=== PATIENT | male | born 1960 | race African-American/Black ===

== ENCOUNTER 2018-10-31 14:55 | Emergency (ER) | payer MEDICAID ==
[~2018-10-31] VITALS: Ht 175.3 cm; Wt 63.5 kg
[~2018-10-31 14:55] MED LIST: GLYB2.5T1 PO; INSU100S45 SUBQ; LEVO500T6 PO; METF850T PO; METR250T2 PO
[2018-10-31 15:05] VITALS: BP 88/42
--- NOTE | 2018-10-31 15:19 | NUR ---
PT TO BED 1
[2018-10-31] MEDS ORDERED: NACL 0.9% 2,000 ML IV ONE (15:30)
--- NOTE | 2018-10-31 16:30 | NUR ---
PT AGGRESSIVE VERBALLY WITH STAFF AND REQUESTING SANDWICH
--- NOTE | 2018-10-31 16:35 | NUR ---
DR AHN VERBAL OK TO GIVE PT A SANDWICH
[2018-10-31] MEDS ORDERED: KETOROLAC 15 MG/ML VIAL IVP ONE (16:40)
--- NOTE | 2018-10-31 16:44 | NUR ---
PICS COMPLETED AND DOCUMENTED
[2018-10-31 16:50] LABS: BASOPHILS # (AUTO) 0.1 K/uL (0.00-0.22); BASOPHILS % (AUTO) 0.7 % (0.0-2.0); EOSINOPHILS # (AUTO) 0.1 K/uL (0-0.4); EOSINOPHILS % (AUTO) 1.1 % (0.0-4.0); HEMATOCRIT 42.3 % (36-52); LYMPHOCYTES # (AUTO) 2.9 K/uL (2.0-11.5); LYMPHOCYTES % (AUTO) 25.9 % (20.5-51.1); MEAN CORPUSCULAR HEMOGLOBIN 28 pg (27-31); MEAN CORPUSCULAR HGB CONC 33 g/dL (33-37); MEAN CORPUSCULAR VOLUME 84.1 fL (80-94); MONOCYTES # (AUTO) 0.5 K/uL (0.8-1.0); MONOCYTES % (AUTO) 4.8 % (1.7-9.3); NEUTROPHILS # (AUTO) 7.4 K/uL (1.8-7.7); NEUTROPHILS % (AUTO) 67.5 % (42.2-75.2); PLATELET COUNT (AUTO) 347 K/uL (140-450); RED BLOOD CELL COUNT(AUTO) 5.03 MIL/uL (4.20-6.10)
[2018-10-31] MEDS ORDERED: KETOROLAC 15 MG/ML VIAL ONE (16:51)
[2018-10-31 17:11] LABS: ALBUMIN 3.4 g/dL (3.4-5.0); ANION GAP 18.9 (8-16); ASPARTATE AMINOTRANSFERASE 25 U/L (15-37); CARBON DIOXIDE 23.8 mmol/L (21-32); CHLORIDE 97 mmol/L (98-107); CREATININE 1.5 mg/dL (0.7-1.3); GFR ARICAN-AMERICAN 62 mL/min (>90); POTASSIUM 3.7 mmol/L (3.5-5.1); SODIUM SERUM 136 mmol/L (136-145); TOTAL BILIRUBIN 0.4 mg/dL (0.0-1.0); UREA NITROGEN, BLOOD 10 mg/dL (7-18)
[2018-10-31 17:13] LABS: GLUCOSE 474 mg/dL (74-106)
[2018-10-31 17:20] LABS: ACETONE, SERUM NEGATIVE (NEGATIVE)
[2018-10-31] MEDS ORDERED: INSULIN REGULAR, HUMAN 100 UNIT/ML VIAL SUBQ ONE (17:20)
[2018-10-31 17:58] LABS: APPEARANCE,URINE CLEAR (CLEAR); BILIRUBIN,URINE NEGATIVE (NEGATIVE); BLOOD, URINE NEGATIVE (NEGATIVE); COLOR,URINE YELLOW (YELLOW); LEUKOCYTE ESTERASE ,URINE NEGATIVE (NEGATIVE); NITRITE, URINE NEGATIVE (NEGATIVE); UGLUCOSE 3+ (NEGATIVE)
[2018-10-31 18:01] LABS: BARBITURATE, URINE NEG. ng/ml (NEG <=200); BENZODIAZEPINE, URINE NEG. ng/mL (NEG <=200); CANNABINOID, URINE POS. ng/mL (NEG <=50); COCAINE, URINE POS. ng/mL (NEG <=300); OPIATE, URINE NEG. ng/mL (NEG <=2000); PHENCYCLIDINE SCREEN,URINE NEG. ng/mL (NEG <=25)
--- NOTE | 2018-10-31 18:32 | NUR ---
PT DOES NOT RECALL MEDS
--- NOTE | 2018-10-31 19:13 | NUR ---
Pt report given to VELASQUEZ [place]. Transfer of care at this time.
--- NOTE | 2018-10-31 19:15 | NUR ---
BLOOD SUGAR 392
--- NOTE | 2018-10-31 19:20 | NUR ---
PT WANTS TO LEAVE AMANGELITO Avalos NOTIFIED.
--- NOTE | 2018-10-31 19:22 | NUR ---
PT AMBULATED TO BATHROOM
[2018-10-31 19:45] VITALS: BP 147/87
--- NOTE | 2018-10-31 20:38 | NUR ---
Patient discharged with v/s stable. HOMELESS PACKET AND RESOURCES WERE PROVIDED. Written and verbal after care instructions given and explained. Patient alert, oriented and verbalized understanding of instructions. Ambulatory with steady gait. All questions addressed prior to discharge. ID band removed. Patient advised to follow up with PMD. Rx of LANTUS WAS given. Patient educated on indication of medication including possible reaction and side effects. Opportunity to ask questions provided and answered.
== END 2018-10-31 19:45 | disposition home or self-care (01) ==
LOC: MED 14:55
DX: E11.65 Type 2 diabetes mellitus with hyperglycemia (principal); E86.0 Dehydration; E87.2 Acidosis; F19.10 Other psychoactive substance abuse, uncomplicated; F20.9 Schizophrenia, unspecified
CPT/HCPCS: 36415; 36600; 71045; 80053; 80305; 81003; 82009; 82803; 82948; 83605; 84484; 85025; 87040; 93005; 96361; 96372; 96374; 99284; J1815; J1885; J7030; Q0092